=== PATIENT | female | born 1955 | race Caucasian/White ===

== ENCOUNTER → 2017-07-06 | Outpatient (REF) | payer BC ==
[2017-07-06 18:06] LABS: YEAST LIKE CELL URINE AUTO LARGE
== END ==
LOC: M LAB REF 16:26
PROVIDERS: ATTEND Physician Assistant
DX: R30.0 Dysuria (principal)

== ENCOUNTER → 2017-10-08 | Outpatient (REF) | payer BC ==
[2017-10-08 14:04] LABS: BACTERIA, URINE NONE SEEN; HYALINE CAST, URINE NONE SEEN /lpf (0-1); MICROSCOPIC EXAM PERFORMED; RBC, URINE NONE SEEN /hpf (0-3); SQUAMOUS EPITHELIAL CELL URINE SMALL AMOUNT /hpf (SMALL AMT); WBC, URINE NONE SEEN /hpf (0-3)
[2017-10-10 00:06] LABS: Candida species Negative (Negative); Gardnerella vaginalis Negative (Negative); Trichamonas vaginalis Negative (Negative)
== END ==
LOC: M SMT 13:06
DX: N39.0 Urinary tract infection, site not specified (principal)
CPT/HCPCS: 81015

== ENCOUNTER → 2017-10-12 | Outpatient (CLI) | payer BC | LOC: M SMT 11:34 | DX: N39.0 Urinary tract infection, site not specified (principal) | CPT/HCPCS: 76770 ==

== ENCOUNTER → 2019-08-16 | Outpatient (REF) | payer BC, MEDICARE ==
[2019-08-16 17:49] LABS: BACTERIA, URINE AUTO NEGATIVE (NEGATIVE); RBC, URINE AUTO 4 /HPF (0-3); SQUAMOUS EPITHELIAL CELL UR AU 1 /HPF (0-6); WBC, URINE AUTO TNTC /HPF (0-3)
== END ==
LOC: M SMT 17:00
PROVIDERS: ATTEND Specialist
DX: N39.0 Urinary tract infection, site not specified (principal)